=== PATIENT | male | born 1950 | race Caucasian/White ===

== ENCOUNTER → 2019-11-27 08:46 | Outpatient (CLI) | payer MEDICARE, OTHER ==
[2014-09-19 11:45] VITALS: BMI 34.1
[~2019-11-27 08:46] MED LIST: FLOMAX0.4 MG PO; RELAFEN500 MG PO; VOLTAREN75 MG PO
== END | disposition home or self-care (01) ==
LOC: D.HCCECHO 08:46
PROVIDERS: ATTEND Internal Medicine Cardiovascular Disease
DX: I25.10 Atherosclerotic heart disease of native coronary artery without angina pectoris (principal)